=== PATIENT | female | born 1985 | race Caucasian/White ===

== ENCOUNTER 2020-08-04 12:30 | Emergency (ER) | payer SELFPAY ==
[2020-08-04 12:32] VITALS: BP 118/85; PULSE 88; RESP 18; TEMP 36.7; O2SAT 97; BMI 42.0
--- NOTE | 2020-08-04 12:50 | W.ED.SKABFB ---
HPI - Skin/Abscess/Foreign Bdy General: Chief complaint: Skin/Abscess/Foreign Body Stated complaint: RIGHT ARMPIT INJURY/CYST Time Seen by Provider: 08/04/20 12:45 History of Present Illness: HPI narrative: Patient wakes with a cyst develop in her right armpit. Patient does have a history of suppartive hidradenitis. complaint: abscess/boil Onset (ago): hour(s) Tetanus up to date: unsure Severity: mild Severity scale (1-10): 3 Quality: aching Pain Consistency: constant Relieving factors: none Exacerbating factors: movement Context: none Associated symptoms: Deny chills or fever(s) Treatments prior to arrival: none Review of Systems Const: Denies: fever(s) or chills Skin/Breast: Reports: erythema and skin tenderness Psych: Denies: anxiety or depression Physical Exam Const: COMMON NORMALS: no acute distress Psych: COMMON NORMALS: mental status grossly normal Skin: GENERAL SKIN EXAM: erythema (Right armpit) Procedures Abscess I/D Site: other (Axillary) Side (if applicable): right Local Anesthetic: lidocaine 1% Amount of anesthesia used (mL): 3 Technique: incised with #11 blade Amount of fluid expressed (mL): 2 Irrigation: Yes Packing used?: none Course Vital Signs: Vital signs: Vital Signs Temperature 98.1 F 08/04/20 12:32 Pulse Rate 88 08/04/20 12:32 Respiratory Rate 18 08/04/20 12:32 Blood Pressure 118/85 08/04/20 12:32 Pulse Oximetry 97 08/04/20 12:32 Discharge Plan Discharge Patient Disposition: Home Clinical Impression: Axillary hidradenitis suppurativa, Incisional abscess Condition: Stable Prescriptions: New Bactrim DS 800-160 mg tablet 1 tab PO BID 10 Days Qty: 20 RF: 0 No Action Humira Pen 40 mg/0.8 mL Pen Injector Kit See Rx Instructions .ROUTE .COMPLEX RF: 0 Discharge Orders: Discharge Order (Routine); Ordered 08/04/20 Ordered By: Alexi Lee Discharge Diet: Usual diet Discharge Activity: Resume usual activity Patient Instructions: Abscess Incision and Drainage (ED) Activity Restrictions/Additional Instructions: Follow-up with medical provider as directed. Take medications as prescribed. Return to the ER or your medical provider if condition worsens. Please read and understand discharge instructions. If any questions ask please. Follow-up at local clinic for further evaluation consider dermatology referral for your ongoing condition. Coding Level of Care Code ED V Block Saw Operator for Chandrakant Fwd Exam Expanded Problem Focused
[2020-08-04 13:15] VITALS: BP 111/57; PULSE 82; RESP 20; O2SAT 97
[2020-08-04 13:17] VITALS: BP 111/57; PULSE 88; RESP 18; TEMP 36.8; O2SAT 96
[2020-08-04] MEDS: lidocaine 1% INJ 20 mL 5 ML INTRADERMA (13:20)
== END 2020-08-04 13:19 | disposition home or self-care (01) ==
PROVIDERS: Emergency Provider Nurse Practitioner Family
DX: L73.2 Hidradenitis suppurativa (principal); L02.411 Cutaneous abscess of right axilla
CPT/HCPCS: 10060; 12345; 87070; 96372; 99281; 99283

== ENCOUNTER 2020-08-05 17:01 | Emergency (ER) | payer SELFPAY ==
[2020-08-05 17:08] VITALS: BP 126/77; PULSE 89; RESP 18; TEMP 36.8; O2SAT 96; BMI 41.5
--- NOTE | 2020-08-05 17:53 | W.ED.HA ---
Documented by User: Felipe Kruse DO 08/10/20 11:19 HPI - Headache General: Chief Complaint: Headache Stated Complaint: Strong Headache Time Seen by Provider: 08/05/20 17:43 History of Present Illness: HPI Narrative: 35-year-old female comes in complaining of headache. She is currently has a headache this is been going on for about 3 weeks. She has not really taken anything for the headache she was under the impression because she is on Humira she cannot take anything. She has photophobia and autophobia. She tries describes a headache as a being mostly on the left side of her head. She had told the nurse she had it for 2 weeks. She is new to the area moved here from [facility] area does not have a primary caregiver. MD elicited complaint: migraine Onset description: gradually Location: left Severity: severe Quality & Timing: throbbing Exacerbating factors: exertion, sitting/standing, light and noise Relieving factors: rest Associated symptoms: Reports eye pain, nausea, photophobia and sound sensitivity; Deny chest pain, confusion, cough, diaphoresis, eye redness, fever(s), lightheadedness, loss of vision, malaise, neck stiffness, numbness, paresthesias, pre-syncope, rash, seizures, short of breath, syncope, vomiting or weakness Treatments prior to arrival: none Review of Systems Const: Denies: fever(s), malaise or diaphoresis ENMT: Denies: throat pain, ear or mastoid pain, nasal discharge or nasal congestion Card: Denies: chest pain, lightheadedness, syncope or pre-syncope Resp: Denies: dyspnea, productive cough or non-productive cough GI: Reports: nausea; Denies: vomiting : Denies: flank pain, difficulty voiding, dysuria, urinary frequency or urinary urgency Skin/Breast: Denies: rash Neuro: Denies: confusion Physical Exam Const: COMMON NORMALS: no acute distress GENERAL APPEARANCE: cooperative and comfortable ORIENTATION/CONSCIOUSNESS: Yes awake, Yes oriented to person, Yes oriented to place and Yes oriented to time HENMT: COMMON NORMALS: normocephalic, atraumatic, hearing grossly normal bilaterally, external ears normal, EAC's normal, TM's normal bilaterally, Normal nasal mucous membranes and turbinates present, moist oral mucous membranes and oropharynx normal HEAD & SCALP: normocephalic and atraumatic NOSE: Normal nasal mucous membranes and turbinates present EXTERNAL EAR: Yes external ears normal EXTERNAL AUDITORY CANAL: EAC's normal TYMPANIC MEMBRANE: TM's normal bilaterally Eye: COMMON NORMALS: Equal, round and reactive pupils present, EOMs intact bilaterally, conjunctivae normal and no scleral icterus CONJUNCTIVA: Yes conjunctivae normal PUPIL: Yes Equal, round and reactive pupils present DIRECT OPHTHALMOSCOPY: Yes photophobia Neck/C-Spine: COMMON NORMALS: full ROM, no lymphadenopathy, supple and no JVD Resp: COMMON NORMALS: normal respiratory effort, No retractions, No use of accessory muscles and clear to auscultation bilaterally AUSCULTATION: clear to auscultation bilaterally Cardio: COMMON NORMALS: no JVD, regular rate, regular rhythm and No murmurs present (Cardio) RATE: regular rate RHYTHM: regular rhythm GI: COMMON NORMALS: Soft to palpation and No hepatosplenomegaly present AUSCULTATION: Yes normoactive bowel sounds PALPATION: Yes Soft to palpation, No Tenderness to palpation present (GI), No Guarding due to palpation present (GI) and Yes No hepatosplenomegaly present Extremity: COMMON NORMALS: normal to inspection, capillary refill normal, no clubbing, cyanosis or edema, no calf tenderness and no pedal edema Neuro: SENSORIUM/ORIENTATION: Yes oriented to person, Yes oriented to place and Yes oriented to time Skin: COMMON NORMALS: no rashes or lesions noted GENERAL SKIN EXAM: no rashes or lesions noted Course Vital Signs: Vital signs: Vital Signs Temperature 98.3 F 08/05/20 17:08 Pulse Rate 81 08/05/20 19:55 Respiratory Rate 16 08/05/20 19:55 Blood Pressure 126/77 08/05/20 17:08 Pulse Oximetry 98 08/05/20 19:55 MDM - Headache MDM Narrative: Medical decision making narrative: Care transferred to Dr. Joseph at change of shift. Discharge Plan Discharge Patient Disposition: Home Clinical Impression: Migraine Qualifiers: Migraine type: unspecified Status migrainosus presence: with status migrainosus Intractability: not intractable Qualified Code(s): G43.901 - Migraine, unspecified, not intractable, with status migrainosus Condition: Stable Prescriptions: No Action Humira Pen 40 mg/0.8 mL Pen Injector Kit See Rx Instructions .ROUTE .COMPLEX RF: 0 sulfamethoxazole-trimethoprim [Bactrim DS] 800-160 mg tablet 1 tab PO BID 10 Days Qty: 20 RF: 0 Discharge Orders: Discharge Order (Routine); Ordered 08/05/20 Ordered By: Josy Daniels Referrals: Yolette Newman MD [Physician] - 4-7 days Discharge Diet: Advance as tolerated Discharge Activity: Increase activity as tolerated Patient Instructions: Migraine Headache (ED), Acute Headache (ED) Activity Restrictions/Additional Instructions: Please return to the ER immediately for any of the signs or symptoms listed on your discharge instruction sheets, worsening/changing of your symptoms, you are not getting better as quickly as expected, or for ANY other cause or concerns. You are leaving without complete evaluation and care, against my advice is Humira may make you more susceptible to infections. I have recommended further work-up here but you have declined. If you change your mind, you develop a fever, your headache returns, you develop a rash, or you simply change your mind you are more than welcome to return here at any time for recheck. Sign Out Sign Out Data: Patient Sign Out occurred on 08/05/20 at 18:30. Patient's care was discussed, and care was transferred from to Josy Daniels. Coding Level of Care Code ED Biomass Power Plant Superintendent for Chg Fwd Exam Comprehensive Documented by User: Josy Daniels 08/05/20 22:04 HPI - Headache General: Chief Complaint: Headache Stated Complaint: Strong Headache Time Seen by Provider: 08/05/20 17:43 Course Vital Signs: Vital signs: Vital Signs Temperature 98.3 F 08/05/20 17:08 Pulse Rate 81 08/05/20 19:55 Respiratory Rate 16 08/05/20 19:55 Blood Pressure 126/77 08/05/20 17:08 Pulse Oximetry 98 08/05/20 19:55 MDM - Headache MDM Narrative: Medical decision making narrative: 1899 -Case inherited by me at change of shift from Dr. Kruse. Please see his note for his history, physical exam and medical decision-making notes. Patient tells me this is a recurrent headache and she has had headaches last this long before. It was gradual in onset and not a sudden onset thunderclap type headache. She denies any fever, neck pain or stiffness or skin rashes. To this point no work-up has been ordered and I informed the patient I thought it would be best to do blood work and possibly a CT and spinal tap but she adamantly refuses all of this. She states she is had to come to the ER before to get pain relief and that is all that she wants today. I did make her aware of her increased risk being on Humira but despite my recommendations and warnings the patient declines and only wants to be medicated for her pain. 194 -the patient's headache has completely resolved. She is feeling better. She still declines any work-up. She was made aware about the possibility of meningitis as the Humira makes her immune suppressed but the patient adamantly denies any fevers or chills. She states she is had headaches like this before and knows herself well. Patient clearly has the capacity to make this decision and despite my warnings she chooses to leave. She does understand she can return here if she change her mind or her symptoms change or worsen. Discharge Plan Discharge Patient Disposition: Home Clinical Impression: Migraine Qualifiers: Migraine type: unspecified Status migrainosus presence: with status migrainosus Intractability: not intractable Qualified Code(s): G43.901 - Migraine, unspecified, not intractable, with status migrainosus Condition: Stable Prescriptions: No Action Humira Pen 40 mg/0.8 mL Pen Injector Kit See Rx Instructions .ROUTE .COMPLEX RF: 0 sulfamethoxazole-trimethoprim [Bactrim DS] 800-160 mg tablet 1 tab PO BID 10 Days Qty: 20 RF: 0 Discharge Orders: Discharge Order (Routine); Ordered 08/05/20 Ordered By: Josy Daniels Referrals: Yolette Newman MD [Physician] - 4-7 days Discharge Diet: Advance as tolerated Discharge Activity: Increase activity as tolerated Patient Instructions: Migraine Headache (ED), Acute Headache (ED) Activity Restrictions/Additional Instructions: Please return to the ER immediately for any of the signs or symptoms listed on your discharge instruction sheets, worsening/changing of your symptoms, you are not getting better as quickly as expected, or for ANY other cause or concerns. You are leaving without complete evaluation and care, against my advice is Humira may make you more susceptible to infections. I have recommended further work-up here but you have declined. If you change your mind, you develop a fever, your headache returns, you develop a rash, or you simply change your mind you are more than welcome to return here at any time for recheck. Sign Out Sign Out Data: Patient Sign Out occurred on 08/05/20 at 18:30. Patient's care was discussed, and care was transferred from to Josy Daniels. Coding Level of Care Code ED Biomass Power Plant Superintendent for Chandrakant Fwd Exam Comprehensive
[2020-08-05] MEDS: ketorolac 30 mg/mL INJ IVP (18:16)
[2020-08-05] MEDS: promethazine 25 mg/mL SDV 1 mL IM (18:16)
[2020-08-05] MEDS: diphenhydrAMINE 50 mg/mL SDV 1mL IVP (18:19)
[2020-08-05] MEDS: sodium chloride 0.9% 1,000 ML 999 ML IV (18:21)
[2020-08-05] MEDS: metoclopramide 5 mg/mL SDV 2 mL 10 MG IVP (19:16)
[2020-08-05 19:55] VITALS: PULSE 81; RESP 16; O2SAT 98
== END 2020-08-05 19:55 | disposition home or self-care (01) ==
PROVIDERS: Emergency Provider Emergency Medicine
DX: G43.901 Migraine, unspecified, not intractable, with status migrainosus (principal)
CPT/HCPCS: 12345; 96365; 96366; 96372; 96375; 99283; J1200; J1885; J2550; J2765; J7030

== ENCOUNTER 2022-06-20 20:35 | Emergency (ER) | payer MEDICAID, SELFPAY ==
[2022-06-20 20:40] VITALS: BP 118/84; PULSE 91; RESP 16; TEMP 36.8; O2SAT 98; BMI 32.6
--- NOTE | 2022-06-20 21:35 | W.ED.HA ---
HPI - Headache General: Chief Complaint: Headache Stated Complaint: Migraine Headache Time Seen by Provider: 06/20/22 21:13 History of Present Illness: Patient is a 37-year-old female comes to the ED with migraine headache. Patient has a history of migraine type headaches and says this headache is similar to her past migraines. Symptoms started approximately 2 days ago. Headache is located in the frontal region of head and she rates it currently an 8 out of 10. It is a constant aching type headache. Any light worsens the headache symptoms. Denies any nausea or vomiting. Denies any recent head trauma, vision changes, numbness tingling to face or extremities or any weakness to 1 side of her body or face. Associated symptoms: Deny chest pain, fever(s), nausea, rash or vomiting Review of Systems Const: Denies: fever(s), chills or fatigue Eyes: Reports: photophobia; Denies: change in vision or eye discomfort ENMT: Denies: throat pain, odynophagia, nasal discharge or nasal congestion Card: Denies: chest pain, palpitations, edema, swelling of feet/ankles, dyspnea on exertion or orthopnea Resp: Denies: dyspnea, productive cough or non-productive cough GI: Denies: abdominal pain, nausea, vomiting, diarrhea, constipation or hematochezia : Denies: flank pain, dysuria or hematuria Musc: Denies: neck pain, back pain or extremity swelling Skin/Breast: Denies: rash or new lesions Neuro: Reports: headache(s); Denies: numbness in extremities or weakness in extremities PFS ED PFSH: Medical History Migraine No pertinent family history Female Reproductive History: Date of last menstrual period: 06/14/22 Physical Exam Const: COMMON NORMALS: patient oriented x3 and alert GENERAL APPEARANCE: cooperative OTHER: Patient is wearing sunglasses in room HENMT: COMMON NORMALS: normocephalic HEAD & SCALP: normocephalic MOUTH: Normal oral and palatal mucosa present THROAT: posterior oropharynx normal and uvula midline Eye: COMMON NORMALS: Equal, round and reactive pupils present and EOMs intact bilaterally GENERAL EYE: appearance normal, both eyes and all related structures PUPIL: Yes Equal, round and reactive pupils present Neck/C-Spine: COMMON NORMALS: supple GENERAL: Yes normal visual inspection Lymph: LYMPHATIC: no lymphadenopathy noted Resp: COMMON NORMALS: normal respiratory effort, No retractions, No use of accessory muscles and clear to auscultation bilaterally AUSCULTATION: clear to auscultation bilaterally Cardio: COMMON NORMALS: regular rate, regular rhythm, S1 normal heart sound present, S2 normal heart sound present, No gallops present (Cardio), No clicks present (Cardio), No murmurs present (Cardio) and Peripheral pulses 2+ throughout RATE: regular rate RHYTHM: regular rhythm HEART SOUNDS: S1 normal heart sound present and S2 normal heart sound present PERIPHERAL PULSES: Peripheral pulses 2+ throughout GI: COMMON NORMALS: Normal to inspection, nondistended, normoactive bowel sounds present, Soft to palpation, non-tender and no masses PALPATION: Yes Soft to palpation : COMMON NORMALS: Yes no CVA tenderness BLADDER/KIDNEY EXAM: Yes no CVA tenderness Back/Pelvis: COMMON NORMALS: no CVA tenderness Extremity: GENERAL: Yes normal exam except as noted Neuro: COMMON NORMALS: patient oriented x3, CN's II-XII intact bilaterally, moves all extremities, no focal motor deficits and no sensory deficits noted SENSORIUM/ORIENTATION: Yes alert SENSORY EXAM: Yes extremities (intact) MOTOR EXAM: 5/5 motor strength present throughout Skin: COMMON NORMALS: no rashes or lesions noted GENERAL SKIN EXAM: no rashes or lesions noted and dry skin Course ED course: After patient received IV migraine cocktail her symptoms improved and she is ready to go home and rest. Vital Signs: Vital signs: Vital Signs Temperature 98.2 F 06/20/22 20:40 Pulse Rate 79 06/20/22 22:38 Respiratory Rate 16 06/20/22 22:38 Blood Pressure 118/81 06/20/22 22:38 Pulse Oximetry 98 06/20/22 22:38 Oxygen Delivery Me thod 06/20/22 20:40 MDM - Headache Medical Decision Making Patient is a 37-year-old female comes to the ED with migraine headache. She has a history of migraine headaches but says this headache is like her past migraines. Denies any neurodeficits. Vitals are stable. Exam shows no neurodeficits. Rest of exam is benign. She was given a dose of IV Toradol, Reglan, Benadryl and Decadron here in the ED. Her symptoms improved greatly. Patient was diagnosed with migraine headache and was stable for discharge home. Told to follow-up with PCP within the next week for reevaluation. Return to ED precautions given. Patient understood and agreed with plan. Discharge Plan Discharge Patient Disposition: Home Clinical Impression: Migraine headache Qualifiers: Migraine type: without aura Status migrainosus presence: without status migrainosus Intractability: not intractable Qualified Code(s): G43.009 - Migraine without aura, not intractable, without status migrainosus Condition: Stable Prescriptions: No Action Humira Pen 40 mg/0.8 mL Pen Injector Kit See Rx Instructions .ROUTE .COMPLEX Rx Instructions: 40 mg subcutaneously as directed PT STATES SHE TAKES EVERY WEEK ON SUNDAY Discharge Orders: Discharge ED (Routine); Ordered 06/20/22 Ordered By: Oliver Amaro Discharge Diet: Regular Discharge Activity: Increase activity as tolerated Patient Instructions: Migraine Headache (ED) Activity Restrictions/Additional Instructions: Follow-up with medical provider as directed in the next 5 to 7 days for reevaluation. Take [id number] Excedrin, Tylenol or Motrin for any reoccurring headaches. Return to the ER or your medical provider if condition worsens. Please read and understand discharge instructions. Thank you for choosing [facility] for your healthcare needs today. Please realize this is an emergency room and that we are providing you with a medical screening exam and this may not be complete and all inclusive of all the testing and or work up that you may need to determine your ailment or severity of your illness. It is very important that you follow up as instructed or that you return to the Emergency Department should you have concerns or if your condition changes or worsens in any way. Coding Level of Care Code ED Cornice Maker for Chandrakant Myrick Exam Comprehensive
[2022-06-20] MEDS: diphenhydrAMINE 50 mg/mL SDV 1mL 25 MG IVP (21:48)
[2022-06-20] MEDS: dexamethasone 10 mg/mL INJ IVP (21:50)
[2022-06-20] MEDS: sodium chloride 0.9% 500 ML 999 ML IV (21:50)
[2022-06-20] MEDS: ketorolac 30 mg/mL INJ IVP (21:52)
[2022-06-20] MEDS: metoclopramide 5 mg/mL SDV 2 mL 10 MG IVP (21:54)
[2022-06-20 22:04] VITALS: BP 98/60; PULSE 76; RESP 16; O2SAT 99
[2022-06-20 22:38] VITALS: BP 118/81; PULSE 79; RESP 16; O2SAT 98
== END 2022-06-20 22:40 | disposition home or self-care (01) ==
PROVIDERS: Emergency Provider Physician Assistant
DX: G43.009 Migraine without aura, not intractable, without status migrainosus (principal); Z79.4 Long term (current) use of insulin
CPT/HCPCS: 96361; 96374; 96375; 99284; J1100; J1200; J1885; J2765; J7040

== ENCOUNTER 2022-08-30 17:40 | Observation (INO) | payer MEDICAID, SELFPAY ==
[2022-08-30 18:19] VITALS: BP 110/74; PULSE 71; TEMP 36.6; O2SAT 99; BMI 31.1
[2022-08-30 19:35] LABS: Basophils % 0.4 %; Eosinophils # 0.1 10^3/uL (0.0-0.8); Eosinophils % 1.5 %; Hematocrit 45.2 % (37.0-47.0); Hemoglobin 15.4 g/dL (11.5-15.3); Lymphocytes # 2.2 10^3/uL (0.8-4.8); Lymphocytes % 26.5 %; Mean Corpuscular HGB Conc 34.1 g/dL (30.0-36.0); Mean Corpuscular Hemoglobin 32.7 pg (28.0-34.0); Mean Platelet Volume 12.3 fL (7.4-10.4); Monocytes # 0.7 10^3/uL (0.2-0.9); Monocytes % 8.3 %; Neutrophils # 5.32 10^3/uL (1.8-7.7); Neutrophils % 63.1 %; Nucleated Red Blood Cells % 0 %; Platelet Count 163 10^3/cmm (130-400); Red Blood Count 4.71 10^6/uL (4.1-5.3); Red Cell Distribution Width 12.2 % (12.1-15.1); White Blood Count 8.4 10^3/uL (4.0-10.0)
[2022-08-30 19:46] LABS: HCG, Serum Qual Negative (Negative)
[2022-08-30 19:51] VITALS: BP 109/81; PULSE 81; O2SAT 98
[2022-08-30 19:57] LABS: Alanine Aminotransferase 12 U/L (0-33); Alkaline Phosphatase 79 U/L (35-105); Anion Gap 11.8 (5-19); Aspartate Amino Transferase 14 U/L (0-32); Blood Urea Nitrogen 11 mg/dL (6-20); Calcium 9.7 mg/dL (8.5-10.5); Carbon Dioxide 27 mmol/L (22-29); Chloride 103 mmol/L (98-107); Globulin 3.8 g/dL (1.3-4.6); Glomerular Filtration Rate 138.8 mL/min (90-130); Glucose 98 mg/dL (65-115); Lipase 18 U/L (13-60); Osmolality Calculated 285 mOsm/kg (285-295); Potassium 3.8 mmol/L (3.5-5.1); Sodium 138 mmol/L (136-145); Total Bilirubin 0.2 mg/dL (0.15-1.2); Total Protein 7.8 g/dL (6.6-8.7)
[2022-08-30 20:21] VITALS: BP 109/81; PULSE 81; TEMP 36.6; O2SAT 98
--- NOTE | 2022-08-30 20:24 | CTR_ITS ---
PROCEDURE INFORMATION: Exam: CT Abdomen And Pelvis With Contrast Exam date and time: 08/30/2022 9:31 PM Age: 37 years old Clinical indication: Abdominal pain; Generalized; Prior surgery; Surgery type: Tubal ligation; Patient HX: C/O persistent diffuse abd pain x 2-3 weeks. TECHNIQUE: Imaging protocol: Computed tomography of the abdomen and pelvis with contrast. Radiation optimization: All CT scans at this facility use at least one of these dose optimization techniques: automated exposure control; mA and/or kV adjustment per patient size (includes targeted exams where dose is matched to clinical indication); or iterative reconstruction. Contrast material: OMNI 350; Contrast volume: 100 ml; Contrast route: INTRAVENOUS (IV); COMPARISON: No relevant prior studies available. RADIATION DOSE METRICS: Total DLP (mGy-cm): 826.37 FINDINGS: Tubes, catheters and devices: Bilateral tubal occlusion devices. Liver: Normal. No mass. Gallbladder and bile ducts: Gallbladder wall thickening with pericholecystic edema, consider correlation with ultrasound if concern for cholecystitis exists. Pancreas: Normal. No ductal dilation. Spleen: Normal. No splenomegaly. Adrenal glands: Normal. No mass. Kidneys and ureters: Normal. No hydronephrosis. Stomach and bowel: Prominent fluid in the small bowel without dilation may reflect an enteritis. Appendix: No evidence of appendicitis. Intraperitoneal space: Unremarkable. No free air. No significant fluid collection. Vasculature: Unremarkable. No abdominal aortic aneurysm. Lymph nodes: Unremarkable. No enlarged lymph nodes. Urinary bladder: Unremarkable as visualized. Reproductive: Small amount of fluid in the uterine cavity may be related to menstrual status. Bones/joints: Unremarkable. No acute fracture. Soft tissues: Unremarkable. CT/CT abdomen pelvis w con* [id number] IMPRESSION: 1. Gallbladder wall thickening with pericholecystic edema, consider correlation with ultrasound if concern for cholecystitis exists. 2. Prominent fluid in the small bowel without dilation may reflect an enteritis. 3. Bilateral tubal occlusion devices. 4. Small amount of fluid in the uterine cavity may be related to menstrual status.
--- NOTE | 2022-08-30 20:33 | ED_ITS ---
HPI - Abdominal Pain General: Chief Complaint: Abdominal Pain Stated Complaint: abd pain Time Seen by Provider: 08/30/22 20:20 Source: patient Mode of arrival: ambulatory Limitations: no limitations History of Present Illness: 37-year-old female states she been having abdominal pain over the last 2 weeks she states her pain became severe today she states is mainly in the epigastric region but radiates to her whole abdomen she denies any vomiting or diarrhea states her pain is currently an 8 out of 10 she denies any worsening improving factors. Denies any dysuria. Associated Symptoms: Denies chills, dysuria and fever(s) Related Data: Date of Last Menstrual Period: 06/14/22 Review of Systems Const: Denies: fever(s), chills, body aches or change in appetite Eyes: Denies: blurry vision or eye discomfort ENMT: Denies: throat pain or dental pain Card: Denies: chest pain Resp: Denies: dyspnea GI: Reports: abdominal pain : Denies: dysuria Musc: Denies: neck pain or back pain Skin/Breast: Denies: rash Neuro: Denies: headache(s) Psych: Denies: depression Art/Lymph: Denies: easy bruising All/Imm: Denies: urticaria PFSH ED PFSH: Medical History Migraine No pertinent family history Social History (Updated 08/30/22 @ 20:34 by Richard Golden MD) Substance/Drug Use: unknown Female Reproductive History: Date of last menstrual period: 06/14/22 Physical Exam Const: COMMON NORMALS: patient oriented x3 GENERAL APPEARANCE: in distress HENMT: COMMON NORMALS: normocephalic and atraumatic HEAD & SCALP: normocephalic and atraumatic Eye: COMMON NORMALS: Equal, round and reactive pupils present and EOMs intact bilaterally PUPIL: Yes Equal, round and reactive pupils present Neck/C-Spine: COMMON NORMALS: full ROM and supple Chest: COMMONS NORMALS: normal inspection of the chest and normal palpation of entire chest wall Resp: COMMON NORMALS: normal respiratory effort, No retractions, No use of accessory muscles and clear to auscultation bilaterally AUSCULTATION: clear to auscultation bilaterally Cardio: COMMON NORMALS: regular rate, regular rhythm and No murmurs present (Cardio) RATE: regular rate RHYTHM: regular rhythm GI: COMMON NORMALS: Normal to inspection, nondistended, normoactive bowel sounds present, Soft to palpation and no masses PALPATION: Yes Soft to palpation and Yes Tenderness to palpation present (GI) Details: RUQ OTHER: diffuse tenderness Extremity: COMMON NORMALS: normal to inspection and full ROM Neuro: COMMON NORMALS: patient oriented x3, moves all extremities and no focal motor deficits Psych: COMMON NORMALS: mental status grossly normal, Normal thought process present and cooperative THOUGHT PROCESS: Normal thought process present Skin: COMMON NORMALS: no rashes or lesions noted and no wounds GENERAL SKIN EXAM: no rashes or lesions noted Course Vital Signs: Vital signs: Vital Signs Temperature 98 F 08/30/22 20:21 Pulse Rate 74 08/30/22 23:00 Respiratory Rate 18 08/30/22 23:00 Blood Pressure 119/94 08/30/22 23:00 Pulse Oximetry 97 08/30/22 23:00 Oxygen Delivery Me thod 08/30/22 23:00 MDM - Abdominal Pain Medical Decision Making Patient presents with abdominal pain she does have right upper quadrant pain and tenderness blood works normal ultrasound does show a calculus cholecystitis with thickened gallbladder wall spoke to surgeon we will place on antibiotics and admit for surgery. Lab Data 08/30/22 19:19 08/30/22 19:19 Labs/Radiology: Radiology Impressions Abdomen/Pelvis CT 08/30/22 20:24 IMPRESSION: 1. Gallbladder wall thickening with pericholecystic edema, consider correlation with ultrasound if concern for cholecystitis exists. 2. Prominent fluid in the small bowel without dilation may reflect an enteritis. 3. Bilateral tubal occlusion devices. 4. Small amount of fluid in the uterine cavity may be related to menstrual status. Gallbladder Ultrasound 08/30/22 22:00 IMPRESSION: 1. Cholelithiasis with gallbladder wall thickening measuring up to 7.7 mm with a positive Mueller's sign, concerning for cholecystitis in the appropriate clinical setting. 2. Scattered areas of gallbladder wall calcification suspected. 3. Hepatic steatosis. Laboratory Results WBC 8.4 10^3/uL (4.0-10.0) 08/30/22 19:19 RBC 4.71 10^6/uL (4.1-5.3) 08/30/22 19:19 Hgb 15.4 g/dL (11.5-15.3) H 08/30/22 19:19 Hct 45.2 % (37.0-47.0) 08/30/22 19:19 MCV 96.0 fl (81-99) 08/30/22 19:19 MCH 32.7 pg (28.0-34.0) 08/30/22 19:19 MCHC 34.1 g/dL (30.0-36.0) 08/30/22 19:19 RDW 12.2 % (12.1-15.1) 08/30/22 19:19 Plt Count 163 10^3/cmm (130-400) 08/30/22 19:19 MPV 12.3 fL (7.4-10.4) H 08/30/22 19:19 Neut % (Auto) 63.1 % 08/30/22 19:19 Lymph % (Auto) 26.5 % 08/30/22 19:19 [place]al[place] % (Auto) 8.3 % 08/30/22 19:19 Eos % (Auto) 1.5 % 08/30/22 19:19 Baso % (Auto) 0.4 % 08/30/22 19:19 Neut # (Auto) 5.32 10^3/uL (1.8-7.7) 08/30/22 19:19 Lymph # (Auto) 2.2 10^3/uL (0.8-4.8) 08/30/22 19:19 [place] # (Auto) 0.7 10^3/uL (0.2-0.9) 08/30/22 19:19 Eos # (Auto) 0.1 10^3/uL (0.0-0.8) 08/30/22 19:19 Baso # (Auto) 0.0 10^3/uL (0.0-0.1) 08/30/22 19:19 Nucleated RBC % (auto) 0 % 08/30/22 19:19 Nucleated RBCs # 0.0 /100WBC 08/30/22 19:19 Sodium 138 mmol/L (136-145) 08/30/22 19:19 Potassium 3.8 mmol/L (3.5-5.1) 08/30/22 19:19 Chloride 103 mmol/L (98-107) 08/30/22 19:19 Carbon Dioxide 27 mmol/L (22-29) 08/30/22 19:19 Anion Gap 11.8 (5-19) 08/30/22 19:19 BUN 11 mg/dL (6-20) 08/30/22 19:19 Creatinine 0.5 mg/dL (0.5-0.9) 08/30/22 19:19 GFR Calculation 138.8 mL/min (90-130) H 08/30/22 19:19 Glucose 98 mg/dL (65-115) 08/30/22 19:19 Calculated Osmolality 285 mOsm/kg (285-295) 08/30/22 19:19 Calcium 9.7 mg/dL (8.5-10.5) 08/30/22 19:19 Total Bilirubin 0.2 mg/dL (0.15-1.2) 08/30/22 19:19 AST 14 U/L (0-32) 08/30/22 19:19 ALT 12 U/L (0-33) 08/30/22 19:19 Alkaline Phosphatase 79 U/L (35-105) 08/30/22 19:19 Total Protein 7.8 g/dL (6.6-8.7) 08/30/22 19:19 Albumin 4.0 g/dL (3.5-5.2) 08/30/22 19:19 Globulin 3.8 g/dL (1.3-4.6) 08/30/22 19:19 Lipase 18 U/L (13-60) 08/30/22 19:19 HCG, Qual Negative (Negative) 08/30/22 19:19 Urine Color Yellow (Yellow) 08/30/22 20:25 Urine Appearance Clear (CLEAR) 08/30/22 20:25 Urine pH 5 (5-7) 08/30/22 20:25 Ur Specific [place] 1.020 (1.005-1.030) 08/30/22 20:25 Urine Protein Neg (Negative) 08/30/22 20:25 Urine Glucose (UA) Norm (Normal) 08/30/22 20:25 Urine Ketones Negative (Negative) 08/30/22 20:25 Urine Blood Neg (Negative) 08/30/22 20:25 Urine Nitrate Negative (Negative) 08/30/22 20:25 Urine Bilirubin Neg (Negative) 08/30/22 20:25 Urine Urobilinogen Norm mg/dL (Negative) 08/30/22 20:25 Ur Leukocyte Esterase Negative (Negative) 08/30/22 20:25 Discharge Plan Discharge Patient Disposition: Admitted As Inpatient Clinical Impression: Acute cholecystitis Prescriptions: No Action Humira Pen 40 mg/0.8 mL Pen Injector Kit See Rx Instructions .ROUTE .COMPLEX Rx Instructions: 40 mg subcutaneously as directed PT STATES SHE TAKES EVERY WEEK ON SUNDAY Coding Level of Care Code ED Take Away Man for Chg Fwd Exam Comprehensive
[2022-08-30 20:35] LABS: Add Urine Microscopic? NO; Charge for UA Resulting for Rev
[2022-08-30 20:41] LABS: Urine Color Yellow (Yellow)
[2022-08-30 20:43] LABS: Bilirubin Urine Neg (Negative); Blood Urine Neg (Negative); Glucose Urine UA Norm (Normal); Ketones Urine Negative (Negative); Leukocyte Esterase Urine Negative (Negative); Nitrate Urine Negative (Negative); Protein Urine Neg (Negative); Urine Appearance Clear (CLEAR); Urobilinogen Urine Norm (Negative); pH Urine 5 (5-7)
[2022-08-30] MEDS: iohexol 350 mg/mL 500 mL Btl (per mL) IV (21:39)
--- NOTE | 2022-08-30 22:00 | USR_ITS ---
PROCEDURE INFORMATION: Exam: US Abdomen, Limited; Right Upper Quadrant Exam date and time: 08/30/2022 10:21 PM Age: 37 years old Clinical indication: Abdominal pain; Epigastric; Additional info: Ruq pain TECHNIQUE: Imaging protocol: Real time ultrasound of the abdomen with image documentation. Limited exam focused on the right upper quadrant. COMPARISON: CT abdomen pelvis w con* [id number] 08/30/2022 9:31 PM FINDINGS: Liver: Hepatic steatosis. Gallbladder: Cholelithiasis with gallbladder wall thickening measuring up to 7.7 mm with a positive Mueller's sign, concerning for cholecystitis in the appropriate clinical setting. Scattered areas of gallbladder wall calcification suspected. Biliary ducts: Normal. No stones. No dilation. Pancreas: Visualized pancreas is unremarkable. Right kidney: Normal. No mass. No hydronephrosis. US/US gall bladder [id number] IMPRESSION: 1. Cholelithiasis with gallbladder wall thickening measuring up to 7.7 mm with a positive Mueller's sign, concerning for cholecystitis in the appropriate clinical setting. 2. Scattered areas of gallbladder wall calcification suspected. 3. Hepatic steatosis.
[2022-08-30 22:16] VITALS: RESP 17; O2SAT 96
[2022-08-30] MEDS: HYDROmorphone 1 mg/mL INJ 1 mL IVP (22:16)
[2022-08-30] MEDS: ondansetron 2 mg/ML SDV 2 mL 4 MG IVP (22:17)
[2022-08-30] MEDS: sodium chloride 0.9% 1,000 ML 999 ML IV (22:17)
[2022-08-30 22:46] VITALS: BP 123/70; PULSE 60; RESP 17; O2SAT 94
[2022-08-30 23:00] VITALS: BP 119/94; PULSE 74; RESP 18; O2SAT 97
[2022-08-30] MEDS: piperacillin-tazobactam 3.375 GM in sodium chloride 0.9% (plus) 50 ML IV (23:08)
[2022-08-31] VITALS (19 sets, daily range): BP systolic 92–129; BP diastolic 56–84; PULSE 50–72; RESP 11–20; TEMP 36.1–36.8; O2SAT 18–100
[2022-08-31] MEDS: sodium chloride 0.9% 1,000 ML 100 ML IV (00:37)
[2022-08-31] MEDS: morphine 4 mg/mL SDV 1 mL IVP (05:23)
[2022-08-31] MEDS: ondansetron 2 mg/ML SDV 2 mL 4 MG IVP (05:23)
[2022-08-31] MEDS: piperacillin-tazobactam 3.375 GM in sodium chloride 0.9% (plus) 50 ML IV (06:06)
--- NOTE | 2022-08-31 08:30 | PM.HP ---
Providers/Chief Complaint Admitting Physician: Malika Carney MD Chief Complaint: abd pain History of Present Illness Sheree Tee is a 37 year old female who presents with epigastric abdominal pain intermittently over the past 3 weeks that has become unrelenting for the past 3 days. It radiates to the right side and into the back at times. She denies nausea, vomiting, or anorexia. She has felt cold for the past few days but has not taken her temperature at home. She has had severe constipation recently for which she had to disimpact herself with spots of blood seen in stool. She denies any prior similar symptoms. Review of Systems Const: Reports: chills; Denies: fever(s) or change in appetite Card: Denies: chest pain Resp: Denies: dyspnea GI: Reports: abdominal pain and constipation; Denies: nausea, vomiting, diarrhea or white/light colored stool : Reports: dysuria Art/Lymph: Reports: easy bleeding (No diagnosed bleeding disorder, denies unexpected postoperative transfusion) Medications/Allergies Home Medications Medication Instructions Recorded Confirmed Last Taken Type No Known Home Medications 08/31/22 08/31/22 Unknown History Allergies Allergy/AdvReac Type Severity Reaction Status Date / Time latex Allergy Intermediate ALGY-Rash Verified 08/30/22 18:18 PFSH Acute PFSH: Medical History (Updated 08/31/22 @ 08:49 by Malika Carney MD) Migraine No pertinent family history Surgical History (Updated 08/31/22 @ 08:35 by Malika Carney MD) History of conization of cervix Hx of knee surgery Hx of tubal ligation Social History (Updated 08/30/22 @ 20:34 by Richard Golden MD) Substance/Drug Use: unknown Female Reproductive History: Date of last menstrual period: 08/24/22 Vitals/I&O/Wt Last Vital Signs Temp 97.9 F 08/31/22 08:00 Pulse 58 L 08/31/22 08:00 Resp 17 08/31/22 08:00 BP 101/67 08/31/22 08:00 Pulse Ox 95 08/31/22 08:00 O2 Del Method 08/31/22 08:00 08/30/22 08/31/22 08/31/22 22:59 06:59 14:59 Intake Total 1050 / 1050 Balance 1050 / 1050 Weight last 48 hrs Weight 205 lb Physical Exam Const: COMMON NORMALS: no acute distress and alert NUTRITIONAL APPEARANCE: overweight Eye: COMMON NORMALS: no scleral icterus Resp: COMMON NORMALS: normal respiratory effort and clear to auscultation bilaterally Cardio: COMMON NORMALS: regular rate, regular rhythm, S1 normal heart sound present and S2 normal heart sound present GI: COMMON NORMALS: Soft to palpation and no masses AUSCULTATION: Yes normoactive bowel sounds PALPATION: Yes Tenderness to palpation present (GI) Details: RUQ (positive Mueller's sign) and other (epigastric), No Guarding due to palpation present (GI) and No Rebound tenderness present Extremity: COMMON NORMALS: no clubbing, cyanosis or edema Skin: COMMON NORMALS: no jaundice Data 08/30/22 19:19 08/30/22 19:19 US: Radiologist's impression: Gallbladder Ultrasound 08/30/22 22:00 IMPRESSION: 1. Cholelithiasis with gallbladder wall thickening measuring up to 7.7 mm with a positive Mueller's sign, concerning for cholecystitis in the appropriate clinical setting. 2. Scattered areas of gallbladder wall calcification suspected. 3. Hepatic steatosis. CT Abd/Pel: Radiologist's impression: Abdomen/Pelvis CT 08/30/22 20:24 IMPRESSION: 1. Gallbladder wall thickening with pericholecystic edema, consider correlation with ultrasound if concern for cholecystitis exists. 2. Prominent fluid in the small bowel without dilation may reflect an enteritis. 3. Bilateral tubal occlusion devices. 4. Small amount of fluid in the uterine cavity may be related to menstrual status. A&P Assessment and plan (1) Acute calculous cholecystitis: Patient with cholelithiasis and acute cholecystitis. She has symptoms going as far back as 3 weeks, raising concern for smoldering subacute cholecystitis that increases risk of requiring conversion to open procedure. I discussed with the patient risks of infection, bleeding, damage to adjacent structures, including bile duct injury, bile leak, retained stones, and the possibility of needing further procedures or surgeries to manage complications. She was made aware that the chance of conversion to open procedure is higher in the setting of acute cholecystitis. I discussed with her expected postoperative course and recovery. All questions were answered to her satisfaction. She would like to proceed with laparoscopic cholecystectomy, possible open cholecystectomy, possible intraoperative cholangiogram. Attestations Medical Necessity Statement*: Sheree Coffmanmynorjeanne's hospital stay will require greater than 2 midnights for operative care of acute cholecystitis and recovery. Coding Level of Care Code Acute Line Clearance Foreman for Chg Fwd Exam Detailed Diagnoses Acute calculous cholecystitis K80.00
--- NOTE | 2022-08-31 10:25 | PC.CHAP ---
Pastoral Care Encounter/Spiritual Assessment Type of Contact [] Declined veterans' counselor visit [] Patient/Family/Request visit [] Outpatient visit [x] Follow-up visit [] Physician referral [] Code/Alert [x] Routine visit [] Staff referral [] Actively dying [] Patient sleeping [] Family support [] [] Out of room [] Palliative care [] [x] Receiving care in room [] Pre-surgical visit [] Trauma [x] Long length of stay [] ICU visit [] Other: Relational/Emotional Strength [] Patient feels connected with others/family/visitors/staff [] Distress [] Loneliness/isolation [] Abandonment Spirituality of Patient [] Person of Elsi [] Attends Anglican of their Elsi [] Believes in Prayer [] Reads Bible or Restoration materials [] There are Spiritual issues to be addressed Dampproofer Interventions [] Prayer [] Active listening [] Non-anxious presence [] Spiritual/emotional support [] Crisis/trauma care [] Spiritual counseling [] Bereavement support [] Provided bereavement packet [] Provided Bible/devotional materials [] Provided toy/stuffed animal, coloring book to patient or family member [] Provided Communion [] Anointing/[place] [] Salvation [] Completed spiritual assessment [] Other: Impact on Illness or Injury [] Angry [] Fearful [] Anxious [] Often cries [] Exhaustion [] Unable to work [] Unable to attend zoroastrianism [] Unable to walk/stand [] Unable to read [] Unable to drive [] Unable to eat/drink [] Unable to sleep [] Unable to be with family [] Patient intubated [] Other: Summary +1 Follow-up visit insurgery Time spent with patient 10 mins
--- NOTE | 2022-08-31 11:53 | P.OP_ITS ---
Operative Report Date of procedure: August 31, 2022 Pre-op diagnosis: Acute calculous cholecystitis Post-op diagnosis: Same Procedure done: Laparoscopic cholecystectomy Specimens removed/disposition: Gallbladder and contents to pathology Surgeon: Malika Carney MD Estimated blood loss: Less than 10 mL Complications: None Findings: Gallbladder wall was thickened but without adhesions. There were multiple stones. There was no bile or stone spillage. Brief History: Sheree Tee is a 37-year-old patient who presented with intractable abdominal pain and imaging showing cholelithiasis with thickened gallbladder wall. She had normal LFTs and WBC. After discussing options, she is now brought to the operating room for cholecystectomy. Procedure: The patient was brought to the operating room and placed on the table in the supine position. A general anesthetic was given, and the patient was intubated. The abdomen was prepped with ChloraPrep and sterilely draped. Skin in the inferior umbilicus was infiltrated with 0.5% Marcaine. The previous scar was opened with a #11 blade. A straight laparoscope was used within an 11 mm insufflating trocar to obtain optical entry. Pneumoperitoneum was established after the obturator traversed the peritoneum, and the trocar was then advanced into the abdomen. An 11 mm bladeless subxiphoid trocar and two 5 mm bladeless right subcostal trocars were placed under laparoscopic visualization after injecting Marcaine at each site. The gallbladder was readily visualized and did not have any adherent omentum. The wall was thickened, but it was not tensely distended. The fundus was retracted cephalad with a locking grasper. The infundibulum was retracted laterally with a second locking grasper. Peritoneum at the gallbladder neck was opened with electrocautery. Dissection with a [place] and electrocautery was carried out to isolate the cystic duct. Calot's node was enlarged and somewhat obstructing the cystic duct-gallbladder junction. It was mobilized toward the gallbladder with electrocautery. The cystic duct was then easily isolated from surrounding structures. A vessel adjacent to Calot's node was isolated and provisionally identified as the cystic artery, although it did appear small in caliber. The cystic duct and artery were separately clipped and divided with scissors, leaving 2 clips on the duct and artery stump. Gallbladder was then mobilized using hook electrocautery. Another vessel was encountered that appeared more substantial and was clipped and divided with scissors, leaving 2 clips on the stump. The stump showed pulsatile motion after division, verifying the structure as cystic artery. The structure adjacent to the node was therefore felt to simply have been lymphatics to the node. The gallbladder was removed from its fossa with hook electro cautery. It was placed in a specimen pouch and brought out through the umbilical trocar site. Gallbladder was opened and stones were removed/morcellized with Francisco stone forceps to facilitate specimen extraction. An 0 Vicryl was used to pass a fascial suture at the umbilical site using a Hilario Miranda. The trocar was then replaced. Subhepatic space was irrigated with saline. Clips appeared secure and hemostatic. No bleeding points were seen in the gallbladder fossa. Trocars were removed under laparoscopic visualization and pneumoperitoneum was released. Fascia at the umbilical site was tied down. Skin was closed with subcuticular 4-0 Monocryl. Closures were reinforced with Dermabond. The patient was awakened, extubated, and transferred to recovery in satisfactory condition. At the end of the case, sharps and sponge counts were reported to be correct.
[2022-08-31] MEDS: meperidine 50 mg/mL INJ 12.5 MG IVP (12:03)
--- NOTE | 2022-08-31 12:12 | P.ANESASSM_ITS ---
Pre-Anesthetic Assessment Height/Weight: Height 1.73 m Weight 92.986 kg Temp Pulse Resp BP Pulse Ox O2 Del Method O2 Flow Rate 97.6 F 68 18 129/84 96 6 08/31/22 11:38 08/31/22 12:03 08/31/22 12:03 08/31/22 12:03 08/31/22 12:03 08/31/22 12:03 08/31/22 11:43 Operation Date: 08/31/22 09:30 Proposed Procedures p Laparoscopic Cholecystectomy, possible open, possible cholangiogram(Not Applicable) - Malika Carney MD Familial anesthetic complications: none Was Beta Flip taken within 24 hours: N/A Was Clonidine taken within 24 hours: N/A Social Tobacco and No alcohol Exam alert, oriented x 3 and regular rate & rhythm Airway Submandibular: within normal limits Cervical ROM: within normal limits Mallampati: Class II Dentition: chipped Pulmonary Chronic Obstructive Pulmonary Disease Metabolic Morbid Obesity Neuropsych Anxiety Anesthetic Plan ASA status: 2 Anesthesia: General Medications/Allergies Home Medications Medication Instructions Recorded Confirmed Last Taken Type No Known Home Medications 08/31/22 08/31/22 Unknown History Allergies Allergy/AdvReac Type Severity Reaction Status Date / Time latex Allergy Intermediate ALGY-Rash Verified 08/31/22 08:55 adhesive Allergy ALGY-Rash Verified 08/31/22 08:55 Current Medications Generic Name Dose Route Start Last Admin Trade Name Freq PRN Reason Stop Dose Admin Sodium Chloride 1,000 mls @ 100 mls/hr 08/30/22 23:45 08/31/22 00:37 Sodium Chloride 0.9% IV 100 mls/hr .Q10H STACEY Administration Piperacillin Sod/Tazobactam 50 mls @ 100 mls/hr 08/31/22 07:00 08/31/22 08:48 Sod 3.375 gm/ Sodium Chloride IV Infused Q8H STACEY Infusion Protocol Morphine Sulfate 4 mg 08/30/22 23:45 08/31/22 05:23 Morphine 4 Mg/Ml Sdv 1 Ml IVP 4 mg Q4H PRN Administration SEVERE PAIN Ondansetron HCl 4 mg 08/30/22 23:45 08/31/22 05:23 Ondansetron 2 Mg/Ml Sdv 2 Ml IVP 4 mg Q6H PRN Administration NAUSEA AND VOMITING PFSH Anesthesia Medical History (Updated 08/31/22 @ 08:49 by Malika Carney MD) Migraine No pertinent family history Surgical History (Updated 08/31/22 @ 08:35 by Malika Carney MD) History of conization of cervix Hx of knee surgery Hx of tubal ligation Social History (Updated 08/30/22 @ 20:34 by Richard Golden MD) Substance/Drug Use: unknown Female Reproductive History Date of last menstrual period: 08/24/22 Data Anesthesia 08/30/22 19:19 08/30/22 19:19 Short CBC 08/30/22 Range/Units 19:19 WBC 8.4 (4.0-10.0) 10^3/uL Hgb 15.4 H (11.5-15.3) g/dL Hct 45.2 (37.0-47.0) % MCV 96.0 (81-99) fl Plt Count 163 (130-400) 10^3/cmm Neut % (Auto) 63.1 % Neut # (Auto) 5.32 (1.8-7.7) 10^3/uL BMP 08/30/22 19:19 Sodium 138 Potassium 3.8 Chloride 103 Carbon Dioxide 27 BUN 11 Creatinine 0.5 Glucose 98 Calcium 9.7 Liver Function 08/30/22 Range/Units 19:19 Total Bilirubin 0.2 (0.15-1.2) mg/dL AST 14 (0-32) U/L ALT 12 (0-33) U/L Alkaline Phosphatase 79 (35-105) U/L Albumin 4.0 (3.5-5.2) g/dL Urine 08/30/22 Range/Units 20:25 Urine Color Yellow (Yellow) Urine Appearance Clear (CLEAR) Urine pH 5 (5-7) Ur Specific [place] 1.020 (1.005-1.030) Urine Protein Neg (Negative) Urine Glucose (UA) Norm (Normal) Urine Ketones Negative (Negative) Urine Nitrate Negative (Negative) Urine Bilirubin Neg (Negative) Ur Leukocyte Esterase Negative (Negative) Cardiac Studies: No Data to Display
--- NOTE | 2022-08-31 12:18 | SUR.PHASEI ---
1239 Pt taken to room 258. SO sleeping at bedside. Care transfered to Anatoly LUIS. Pt ambulated to bathroom with minimal assistance.
[2022-08-31] MEDS: lactated ringers 1,000 ML 100 ML IV (13:15)
--- NOTE | 2022-08-31 13:22 | ANE.PACU2 ---
Inpatient post-anesthesia follow up: Airway intact: Yes Vital signs: Temperature 97.5 F Pulse Rate 53 Respiratory Rate 17 Blood Pressure 119/78 Pulse Oximetry 94 Oxygen Delivery Me thod Room Air Oxygen Flow Rate 6 Fraction of Inspir ed Oxygen Hydration adequate: Yes Nausea and vomiting: No Pain level: 3 Mental status: Baseline
[2022-08-31] MEDS: sodium chloride 0.9% 500 ML 999 ML IV (14:53)
--- NOTE | 2022-09-01 16:18 | PM.DCS ---
Discharge Providers Date of Admission: 08/30/22 23:09 Date of Discharge: August 31, 2022 Attending Provider at Admission: Malika Carney MD Attending Provider at Discharge: Malika Carney MD Diagnoses at Discharge Discharge Diagnosis (1) Acute calculous cholecystitis: Status: Acute Reason for Visit Reason for Visit: abd pain Brief History: Sheree Tee is a 37-year-old patient who presented with 3 weeks of epigastric pain and findings of cholecystitis on evaluation. Hospital Course Hospital Course Patient was admitted to the hospital for pain control and taken to the operating room on 08/31/2022 for laparoscopic cholecystectomy. She underwent procedure without incident and tolerated a diet without difficulty postoperatively. She had satisfactory pain control on oral medication and was ambulating without difficulty. She was discharged home in stable condition. Physical Exam Const: COMMON NORMALS: no acute distress and alert Resp: COMMON NORMALS: normal respiratory effort and clear to auscultation bilaterally AUSCULTATION: clear to auscultation bilaterally Cardio: COMMON NORMALS: regular rate and regular rhythm RATE: regular rate RHYTHM: regular rhythm GI: COMMON NORMALS: Soft to palpation INSPECTION: Yes incision (well-approximated, clean and dry) PALPATION: Yes Soft to palpation and Yes Tenderness to palpation present (GI) (appropriate incisional tenderness) Extremity: COMMON NORMALS: normal to inspection Neuro: SENSORIUM/ORIENTATION: Yes alert Discharge Data Studies Completed and Pending Completed Studies During Hospitalization Category Date Time Status CT abdomen pelvis w con* [id number] Stat Cat Scan 08/30/22 20:24 Completed Pathology: Surgical [PTH] Routine Pth 08/31/22 11:09 Completed US gall bladder [id number] Stat Ultrasound 08/30/22 22:00 Completed Radiology Impressions Abdomen/Pelvis CT 08/30/22 20:24 IMPRESSION: 1. Gallbladder wall thickening with pericholecystic edema, consider correlation with ultrasound if concern for cholecystitis exists. 2. Prominent fluid in the small bowel without dilation may reflect an enteritis. 3. Bilateral tubal occlusion devices. 4. Small amount of fluid in the uterine cavity may be related to menstrual status. Gallbladder Ultrasound 08/30/22 22:00 IMPRESSION: 1. Cholelithiasis with gallbladder wall thickening measuring up to 7.7 mm with a positive Mueller's sign, concerning for cholecystitis in the appropriate clinical setting. 2. Scattered areas of gallbladder wall calcification suspected. 3. Hepatic steatosis. Laboratory Results WBC 8.4 10^3/uL (4.0-10.0) 08/30/22 19:19 RBC 4.71 10^6/uL (4.1-5.3) 08/30/22 19:19 Hgb 15.4 g/dL (11.5-15.3) H 08/30/22 19:19 Hct 45.2 % (37.0-47.0) 08/30/22 19:19 MCV 96.0 fl (81-99) 08/30/22 19:19 MCH 32.7 pg (28.0-34.0) 08/30/22 19:19 MCHC 34.1 g/dL (30.0-36.0) 08/30/22 19:19 RDW 12.2 % (12.1-15.1) 08/30/22 19:19 Plt Count 163 10^3/cmm (130-400) 08/30/22 19:19 MPV 12.3 fL (7.4-10.4) H 08/30/22 19:19 Neut % (Auto) 63.1 % 08/30/22 19:19 Lymph % (Auto) 26.5 % 08/30/22 19:19 [place] % (Auto) 8.3 % 08/30/22 19:19 Eos % (Auto) 1.5 % 08/30/22 19:19 Baso % (Auto) 0.4 % 08/30/22 19:19 Neut # (Auto) 5.32 10^3/uL (1.8-7.7) 08/30/22 19:19 Lymph # (Auto) 2.2 10^3/uL (0.8-4.8) 08/30/22 19:19 [place] # (Auto) 0.7 10^3/uL (0.2-0.9) 08/30/22 19:19 Eos # (Auto) 0.1 10^3/uL (0.0-0.8) 08/30/22 19:19 Baso # (Auto) 0.0 10^3/uL (0.0-0.1) 08/30/22 19:19 Nucleated RBC % (auto) 0 % 08/30/22 19:19 Nucleated RBCs # 0.0 /100WBC 08/30/22 19:19 Sodium 138 mmol/L (136-145) 08/30/22 19:19 Potassium 3.8 mmol/L (3.5-5.1) 08/30/22 19:19 Chloride 103 mmol/L (98-107) 08/30/22 19:19 Carbon Dioxide 27 mmol/L (22-29) 08/30/22 19:19 Anion Gap 11.8 (5-19) 08/30/22 19:19 BUN 11 mg/dL (6-20) 08/30/22 19:19 Creatinine 0.5 mg/dL (0.5-0.9) 08/30/22 19:19 GFR Calculation 138.8 mL/min (90-130) H 08/30/22 19:19 Glucose 98 mg/dL (65-115) 08/30/22 19:19 Calculated Osmolality 285 mOsm/kg (285-295) 08/30/22 19:19 Calcium 9.7 mg/dL (8.5-10.5) 08/30/22 19:19 Total Bilirubin 0.2 mg/dL (0.15-1.2) 08/30/22 19:19 AST 14 U/L (0-32) 08/30/22 19:19 ALT 12 U/L (0-33) 08/30/22 19:19 Alkaline Phosphatase 79 U/L (35-105) 08/30/22 19:19 Total Protein 7.8 g/dL (6.6-8.7) 08/30/22 19:19 Albumin 4.0 g/dL (3.5-5.2) 08/30/22 19:19 Globulin 3.8 g/dL (1.3-4.6) 08/30/22 19:19 Lipase 18 U/L (13-60) 08/30/22 19:19 HCG, Qual Negative (Negative) 08/30/22 19:19 Urine Color Yellow (Yellow) 08/30/22 20:25 Urine Appearance Clear (CLEAR) 08/30/22 20:25 Urine pH 5 (5-7) 08/30/22 20:25 Ur Specific [place] 1.020 (1.005-1.030) 08/30/22 20:25 Urine Protein Neg (Negative) 08/30/22 20:25 Urine Glucose (UA) Norm (Normal) 12/07/22 20:25 Urine Ketones Negative (Negative) 08/30/22 20:25 Urine Blood Neg (Negative) 08/30/22 20:25 Urine Nitrate Negative (Negative) 08/30/22 20:25 Urine Bilirubin Neg (Negative) 08/30/22 20:25 Urine Urobilinogen Norm mg/dL (Negative) 08/30/22 20:25 Ur Leukocyte Esterase Negative (Negative) 08/30/22 20:25 Urine HCG, Qual Cancelled 08/31/22 09:02 Procedures Performed Procedures Operation Date: 08/31/22 09:30 Actual Procedure Side Surgeon Laparoscopic Cholecystectomy Not Applicable Malika Carney MD Vitals Last Vital Signs Temp 97.8 F 08/31/22 17:36 Pulse 64 08/31/22 17:36 Resp 16 08/31/22 17:36 BP 93/56 08/31/22 17:36 Pulse Ox 96 08/31/22 17:36 O2 Del Method 08/31/22 15:45 O2 Flow Rate 6 08/31/22 11:43 Discharge Plan Discharge Patient Disposition: Home Condition: Stable Prescriptions: New oxycodone 5 mg Tablet 5 mg PO Q6H PRN (Reason: Moderate Pain) Qty: 15 0RF Discharge Orders: Discharge Order (Routine); Ordered 08/31/22 Ordered By: Malika Carney Referrals: Kristofer Villaseñor DO [Physician] - 7-10 days (Please call Dr. Villaseñor's office tomorrow morning to schedule a hospital follow up appointment within 1 week. Your information has been faxed to the office. ) Discharge Diet: Advance as tolerated Discharge Activity: Limit activity as instructed Patient Instructions: Oxycodone/Acetaminophen (By mouth), Laparoscopic Cholecystectomy (GEN), Opioid Safety, Post Anesthesia Care Activity Restrictions/Additional Instructions: No lifting, pushing, or pulling over 10 pounds for [address] while on prescription pain medication and until you can use the brake without pain. Your incisions have surgical glue on them. Do not peel or pick at it. Do not apply ointments or lotions over it. You may shower. Do not submerge the incisions in tub or pool for 1 week. Use an ice pack to the incision areas today and tomorrow to help with pain and swelling. Use ibuprofen and acetaminophen as a first step for relief of pain. If this does not control the pain, use the prescription pain medication. Take a stool softener while on the prescription pain medication to avoid constipation. Discharge Attestations Time Spent in Discharge Care*: less than 30 min Quality Metrics Clinical Quality Measures [ No reported AMI, CVA or VTE this stay] Coding Level of Care Code Acute g FW AR note Diagnoses Acute calculous cholecystitis K80.00
== END 2022-08-31 17:37 | disposition home or self-care (01) ==
LOC: ER 23:14 → MEDSURG 08-31 00:02
PROVIDERS: Nurse Practitioner Family; Admitting Provider Surgery; Emergency Provider Emergency Medicine; Visit Provider Surgery
PROC: 0FT44ZZ Resection of Gallbladder, Percutaneous Endoscopic Approach (ICD-10-PCS; CPT 47562; principal; 2022-08-31 09:30)
DX: K80.10 Calculus of gallbladder with chronic cholecystitis without obstruction (principal); J44.9 Chronic obstructive pulmonary disease, unspecified; E66.01 Morbid (severe) obesity due to excess calories; F41.9 Anxiety disorder, unspecified; Z68.31 Body mass index [BMI] 31.0-31.9, adult
CPT/HCPCS: 47562; 12345; 36415; 74177; 76705; 80053; 81003; 81025; 83690; 84703; 85025; 88304; 96374; 96375; 99285; G0378; J1170; J1200; J2175; J2250; J2270; J2405; J2543; J2704; J2710; J3010; J3490; J7030; J7040; J7120; Q9967

== ENCOUNTER 2022-09-02 00:12 | Emergency (ER) | payer MEDICAID, SELFPAY ==
--- NOTE | 2022-09-02 00:13 | CTR_ITS ---
PROCEDURE INFORMATION: Exam: CT Abdomen And Pelvis Without Contrast Exam date and time: 09/02/2022 12:56 AM Age: 37 years old Clinical indication: Abdominal pain; Generalized; Prior surgery; Surgery date: Post-operative (0-2 days); Surgery type: Lap abdoul on 09/01/2022. Tubal ligation; Patient HX: C/O severe abd pain post lap abdoul surgery yesterday. TECHNIQUE: Imaging protocol: Computed tomography of the abdomen and pelvis without contrast. Radiation optimization: All CT scans at this facility use at least one of these dose optimization techniques: automated exposure control; mA and/or kV adjustment per patient size (includes targeted exams where dose is matched to clinical indication); or iterative reconstruction. COMPARISON: CT abdomen pelvis w con* [id number] 08/30/2022 9:31 PM RADIATION DOSE METRICS: Total DLP (mGy-cm): 828.53 FINDINGS: Lungs: Minimal lung base atelectasis. Liver: Mildly enlarged liver. Gallbladder and bile ducts: Absent gallbladder. No gallbladder fossa fluid collection. Trace gallbladder fossa fluid. See series 3/35. Pancreas: Unremarkable with no suspicious mass. No ductal dilation. Spleen: The spleen is not enlarged. No suspicious mass is noted. Adrenal glands: Normal. No mass. Kidneys and ureters: No solid renal mass or hydronephrosis. Stomach and bowel: Fecal filled colon. Appendix: No evidence of appendicitis. Intraperitoneal space: Small amount of free air consistent with recent abdominal surgery which was performed yesterday. Vasculature: No AAA or acute vascular lesion identified. Lymph nodes: No enlarged lymph nodes. Urinary bladder: Unremarkable as visualized. Reproductive: Unremarkable as visualized. Possible small left ovarian follicle. Bones/joints: No acute fracture. Soft tissues: Mild diffuse anasarca. Subcutaneous air likely due to the recent procedure. CT/CT abdomen pelvis wo con [id number] IMPRESSION: 1. Recent operative findings of cholecystectomy as described, with associated mild free air and scant free fluid in the gallbladder fossa. No sizable fluid collection visualized. The procedure was performed yesterday. Most of the above described free air is actually fairly extraperitoneal. 2. No small bowel obstruction or abscess noted. 3. A few chronic findings above.
[2022-09-02 00:18] VITALS: BP 138/81; PULSE 62; RESP 18; TEMP 36.6; O2SAT 100; BMI 31.1
--- NOTE | 2022-09-02 00:23 | ED_ITS ---
HPI - Abdominal Pain General: Chief Complaint: Abdominal Pain Stated Complaint: ABD PAIN Time Seen by Provider: 09/02/22 00:14 Source: patient and EMS Mode of arrival: EMS Limitations: no limitations History of Present Illness: 37-year-old female who had a cholecystectomy yesterday states that this morning she had sneezed hard and been having right lower quadrant pain since and states pain sharp in nature is an 8 out of 10 she has not been taking her oxycodone. She states it is worse to move and improved with rest. Associated Symptoms: Denies chills, dysuria and fever(s) Related Data: Date of Last Menstrual Period: 08/24/22 Review of Systems Const: Denies: fever(s), chills, body aches or change in appetite Eyes: Denies: blurry vision or eye discomfort ENMT: Denies: throat pain or dental pain Card: Denies: chest pain Resp: Denies: dyspnea GI: Reports: abdominal pain : Denies: dysuria Musc: Denies: neck pain or back pain Skin/Breast: Denies: rash Neuro: Denies: headache(s) Psych: Denies: depression Art/Lymph: Denies: easy bruising All/Imm: Denies: urticaria PFSH ED PFSH: Medical History Migraine No pertinent family history Surgical History History of conization of cervix Hx of knee surgery Hx of tubal ligation Female Reproductive History: Date of last menstrual period: 08/24/22 Physical Exam Const: COMMON NORMALS: no acute distress, patient oriented x3 and healthy appearing HENMT: COMMON NORMALS: normocephalic and atraumatic HEAD & SCALP: normocephalic and atraumatic Eye: COMMON NORMALS: Equal, round and reactive pupils present and EOMs intact bilaterally PUPIL: Yes Equal, round and reactive pupils present Neck/C-Spine: COMMON NORMALS: full ROM and supple Chest: COMMONS NORMALS: normal inspection of the chest and normal palpation of entire chest wall Resp: COMMON NORMALS: normal respiratory effort, No retractions, No use of accessory muscles and clear to auscultation bilaterally AUSCULTATION: clear to auscultation bilaterally Cardio: COMMON NORMALS: regular rate, regular rhythm and No murmurs present (Cardio) RATE: regular rate RHYTHM: regular rhythm GI: COMMON NORMALS: Normal to inspection, nondistended, normoactive bowel sounds present, Soft to palpation and no masses PALPATION: Yes Soft to palpation and Yes Tenderness to palpation present (GI) Details: RLQ Extremity: COMMON NORMALS: normal to inspection and full ROM Neuro: COMMON NORMALS: patient oriented x3, moves all extremities and no focal motor deficits Psych: COMMON NORMALS: mental status grossly normal, Normal thought process present and cooperative THOUGHT PROCESS: Normal thought process present Skin: COMMON NORMALS: no rashes or lesions noted and no wounds GENERAL SKIN EXAM: no rashes or lesions noted Course Vital Signs: Vital signs: Vital Signs Temperature 98 F 09/02/22 00:18 Pulse Rate 51 L 09/02/22 01:45 Respiratory Rate 16 09/02/22 01:45 Blood Pressure 114/74 09/02/22 01:45 Pulse Oximetry 97 09/02/22 01:45 MDM - Abdominal Pain Medical Decision Making Patient presents with abdominal pain CT and blood work are all normal she is stable for discharge she is to follow-up with PCP and return if worsening. Lab Data 09/02/22 01:25 09/02/22 01:25 Labs/Radiology: Radiology Impressions Abdomen/Pelvis CT 09/02/22 00:13 IMPRESSION: 1. Recent operative findings of cholecystectomy as described, with associated mild free air and scant free fluid in the gallbladder fossa. No sizable fluid collection visualized. The procedure was performed yesterday. Most of the above described free air is actually fairly extraperitoneal. 2. No small bowel obstruction or abscess noted. 3. A few chronic findings above. Laboratory Results WBC 10.7 10^3/uL (4.0-10.0) H 09/02/22 01:25 RBC 4.29 10^6/uL (4.1-5.3) 09/02/22 01:25 Hgb 13.9 g/dL (11.5-15.3) 09/02/22 01:25 Hct 40.9 % (37.0-47.0) 09/02/22:25 MCV 95.3 fl (81-99) 09/02/22:25 MCH 32.4 pg (28.0-34.0) 09/02/22 01:25 MCHC 34.0 g/dL (30.0-36.0) 09/02/22 01:25 RDW 12.1 % (12.1-15.1) 09/02/22 01:25 Plt Count 138 10^3/cmm (130-400) 09/02/22 01:25 MPV 12.0 fL (7.4-10.4) H 09/02/22 01:25 Neut % (Auto) 56.0 % 09/02/22 01:25 Lymph % (Auto) 33.1 % 09/02/22 01:25 [place] % (Auto) 8.7 % 09/02/22 01:25 Eos % (Auto) 1.5 % 09/02/22 01:25 Baso % (Auto) 0.4 % 09/02/22 01:25 Neut # (Auto) 6.02 10^3/uL (1.8-7.7) 09/02/22 01:25 Lymph # (Auto) 3.6 10^3/uL (0.8-4.8) 09/02/22 01:25 [place] # (Auto) 0.9 10^3/uL (0.2-0.9) 09/02/22 01:25 Eos # (Auto) 0.2 10^3/uL (0.0-0.8) 09/02/22 01:25 Baso # (Auto) 0.0 10^3/uL (0.0-0.1) 09/02/22 01:25 Nucleated RBC % (auto) 0 % 09/02/22 01:25 Nucleated RBCs # 0.0 /100WBC 09/02/22 01:25 Sodium 140 mmol/L (136-145) 09/02/22 01:25 Chloride 106 mmol/L (98-107) 09/02/22 01:25 Carbon Dioxide 23 mmol/L (22-29) 09/02/22 01:25 Anion Gap 14.3 (5-19) 09/02/22 01:25 BUN 10 mg/dL (6-20) 09/02/22 01:25 Creatinine 0.5 mg/dL (0.5-0.9) 09/02/22 01:25 Calculated Osmolality 290 mOsm/kg (285-295) 09/02/22 01:25 Calcium 9.0 mg/dL (8.5-10.5) 09/02/22 01:25 Total Bilirubin 0.3 mg/dL (0.15-1.2) 09/02/22 01:25 AST 21 U/L (0-32) 09/02/22 01:25 Alkaline Phosphatase 71 U/L (35-105) 09/02/22 01:25 Total Protein 6.9 g/dL (6.6-8.7) 09/02/22 01:25 Albumin 3.6 g/dL (3.5-5.2) 09/02/22 01:25 Globulin 3.3 g/dL (1.3-4.6) 09/02/22 01:25 Lipase 22 U/L (13-60) 09/02/22 01:25 Discharge Plan Discharge Patient Disposition: Home Clinical Impression: Abdominal pain Condition: Stable Prescriptions: No Action oxycodone 5 mg Tablet 5 mg PO Q6H PRN (Reason: Moderate Pain) Qty: 15 0RF Discharge Orders: Discharge ED (Routine); Ordered 09/02/22 Ordered By: Richard Golden Discharge Diet: Advance as tolerated Discharge Activity: Resume usual activity Patient Instructions: Abdominal Pain (ED), Opioid Safety, Pain Management Coding Level of Care Code ED [facility] Nurse Practitioner for Andrewg Fwd Exam Comprehensive
[2022-09-02 01:14] VITALS: BP 118/75; PULSE 63; RESP 16; O2SAT 97
[2022-09-02] MEDS: ondansetron 2 mg/ML SDV 2 mL 4 MG IVP (01:14)
[2022-09-02] MEDS: morphine 4 mg/mL SDV 1 mL IVP (01:14)
[2022-09-02 01:36] LABS: Basophils % 0.4 %; Eosinophils # 0.2 10^3/uL (0.0-0.8); Eosinophils % 1.5 %; Hematocrit 40.9 % (37.0-47.0); Hemoglobin 13.9 g/dL (11.5-15.3); Lymphocytes # 3.6 10^3/uL (0.8-4.8); Lymphocytes % 33.1 %; Mean Corpuscular Hemoglobin 32.4 pg (28.0-34.0); Mean Corpuscular Volume 95.3 fl (81-99); Monocytes # 0.9 10^3/uL (0.2-0.9); Monocytes % 8.7 %; Neutrophils # 6.02 10^3/uL (1.8-7.7); Nucleated Red Blood Cells % 0 %; Platelet Count 138 10^3/cmm (130-400); Red Blood Count 4.29 10^6/uL (4.1-5.3); Red Cell Distribution Width 12.1 % (12.1-15.1); White Blood Count 10.7 10^3/uL (4.0-10.0)
[2022-09-02 01:45] VITALS: BP 114/74; PULSE 51; RESP 16; O2SAT 97
[2022-09-02 01:59] LABS: Add Urine Microscopic? NO; Charge for UA Resulting for Rev
[2022-09-02 01:59] LABS: Alanine Aminotransferase 37 U/L (0-33); Albumin Level 3.6 g/dL (3.5-5.2); Alkaline Phosphatase 71 U/L (35-105); Anion Gap 14.3 (5-19); Aspartate Amino Transferase 21 U/L (0-32); Blood Urea Nitrogen 10 mg/dL (6-20); Carbon Dioxide 23 mmol/L (22-29); Chloride 106 mmol/L (98-107); Globulin 3.3 g/dL (1.3-4.6); Glomerular Filtration Rate 138.8 mL/min (90-130); Glucose 124 mg/dL (65-115); Lipase 22 U/L (13-60); Osmolality Calculated 290 mOsm/kg (285-295); Potassium 3.3 mmol/L (3.5-5.1); Sodium 140 mmol/L (136-145); Total Bilirubin 0.3 mg/dL (0.15-1.2); Total Protein 6.9 g/dL (6.6-8.7)
[2022-09-02 02:07] LABS: Urine Appearance Clear (CLEAR); Urine Color Yellow (Yellow); pH Urine 5 (5-7)
[2022-09-02 02:08] LABS: Bilirubin Urine Neg (Negative); Blood Urine Neg (Negative); Glucose Urine UA Norm (Normal); Ketones Urine Negative (Negative); Leukocyte Esterase Urine Negative (Negative); Nitrate Urine Negative (Negative); Protein Urine Neg (Negative); Specific Gravity, Urine 1.015 (1.005-1.030); Urobilinogen Urine Neg (Negative)
== END 2022-09-02 02:37 | disposition home or self-care (01) ==
PROVIDERS: Emergency Provider Emergency Medicine
DX: R10.31 Right lower quadrant pain (principal)
CPT/HCPCS: 74176; 80053; 81003; 83690; 85025; 96374; 96375; 99284; J2270; J2405